=== PATIENT | female | born 1950 | race Caucasian/White ===

== ENCOUNTER → 2017-10-07 | Outpatient (CLI) | payer MEDICARE ==
--- NOTE | 2017-10-08 10:48 | MM ---
Reason for exam: screening (asymptomatic). Last mammogram was performed 17 years and 4 months ago. Physical Findings: A clinical breast exam by your physician is recommended on an annual basis and results should be correlated with mammographic findings. MG 3D Screening Mammo W/Cad Bilateral CC and MLO view(s) were taken. Prior study comparison: October 04, 2015, mammogram, performed at [facility]. July 25, 2015, mammogram, performed at [facility]. There are scattered fibroglandular densities. Finding: There are few typically benign round calcifications in both breasts. Asymmetric breast tissue in the left upper quadrant is stable. There is no discrete abnormality. ASSESSMENT: Benign, BI-RAD 2 RECOMMENDATION: Routine screening mammogram of both breasts in 1 year.
== END | disposition home or self-care (01) ==
LOC: RADMAMWWP 10:08
PROVIDERS: ATTEND Family Medicine
DX: Z12.31 Encounter for screening mammogram for malignant neoplasm of breast (principal)
CPT/HCPCS: 77063; 77067

== ENCOUNTER 2018-01-05 11:05 | Observation (INO) | payer MEDICARE ==
[2018-01-05] MEDS ORDERED: ASPIRIN 81 MG PO STA (11:31)
--- NOTE | 2018-01-05 11:43 | ED ---
Chest Pain HPI - General Chief Complaint: Chest Pain Stated Complaint: chest pain/tightness-left breast Time Seen by Provider: 01/05/18 11:29 Source: patient Mode of arrival: ambulatory Limitations: no limitations - History of Present Illness Initial Comments: Patient complains of chest pain. Pain is in the center and left of the chest, radiating towards the left side. Nothing makes it better or worse. She has been having chest pain off and on for several days. Her pain began to get worse over the last few hours. It is now not going away. She has taken no medication this. She was not doing anything when it began. She has no nausea or vomiting or diaphoresis. She has no shortness of breath, belly or back pain. She has no pain or swelling the legs. She has no focal weakness. She has no trouble swallowing. - Related Data Home Medications Medication Instructions Recorded Confirmed Omeprazole [PriLOSEC] 20 mg PO DAILY 02/28/14 01/05/18 Aspirin 325 mg PO ONCE PRN 01/05/18 01/05/18 Atorvastatin [Lipitor] 80 mg PO HS 01/05/18 01/05/18 Meclizine [Antivert] 25 mg PO DAILY 01/05/18 01/05/18 Multivitamins, Thera [Multivitamin 1 tab PO DAILY 01/05/18 01/05/18 (formulary)] Allergies Allergy/AdvReac Type Severity Reaction Status Date / Time Penicillins Allergy Rash/Hives Verified 01/05/18 11:42 Review of Systems ROS Statement: Those systems with pertinent positive or pertinent negative responses have been documented in the HPI. ROS Other: All systems not noted in ROS Statement are negative. EKG Findings - EKG Comments: EKG Findings:: Twelve-lead EKG shows ventricular rate 80 bpm, normal [place] interval and QRS complexes, no ST elevation or depression, interpreted by me as normal sinus rhythm. Past Medical History Past Medical History: Asthma, GERD/Reflux, Hyperlipidemia, Renal Disease History of Any Multi-Drug Resistant Organisms: None Reported Past Surgical History: Cholecystectomy, Hysterectomy Additional Past Surgical History / Comment(s): CERVICAL FUSION, COLONOSCOPY, BILAT CTR Past Anesthesia/Blood Transfusion Reactions: Motion Sickness Past Psychological History: No Psychological Hx Reported Smoking Status: Former smoker Past Alcohol Use History: None Reported Past Drug Use History: None Reported - Past Family History Father Family Medical History: Cancer General Exam Limitations: no limitations General appearance: alert, in no apparent distress Head exam: Present: atraumatic, normocephalic, normal inspection Eye exam: Present: normal appearance, PERRL, EOMI. Absent: scleral icterus, conjunctival injection, periorbital swelling ENT exam: Present: normal exam, mucous membranes moist Neck exam: Present: normal inspection. Absent: tenderness, meningismus, lymphadenopathy Respiratory exam: Present: normal lung sounds bilaterally. Absent: respiratory distress, wheezes, rales, rhonchi, stridor Cardiovascular Exam: Present: regular rate, normal rhythm, normal heart sounds. Absent: systolic murmur, diastolic murmur, rubs, gallop, clicks GI/Abdominal exam: Present: soft, normal bowel sounds. Absent: distended, tenderness, guarding, rebound, rigid Extremities exam: Present: normal inspection, full ROM, normal capillary refill. Absent: tenderness, pedal edema, joint swelling, calf tenderness Back exam: Present: normal inspection Neurological exam: Present: alert, oriented X3, CN II-XII intact Psychiatric exam: Present: normal affect, normal mood Skin exam: Present: warm, dry, intact, normal color. Absent: rash Course Vital Signs 01/05/18 01/05/18 11:14 12:44 Temperature 98.5 F Pulse Rate 86 83 Respiratory 20 16 Rate Blood Pressure 142/79 145/73 O2 Sat by Pulse 96 98 Oximetry Chest Pain MDM - Core Measures AMI Core Measures Followed: Yes - MDM Patient complains of chest pain. Her symptoms are typical for cardiac etiology. She will be admitted to the hospital. I will consult cardiology. Disposition Clinical Impression: Chest pain Disposition: ADMITTED IP TO THIS HOSP Condition: Fair Instructions: Chest Pain (ED) Is patient prescribed a controlled substance at d/c from ED?: No Referrals: Luke Tavarez DO [Primary Care Provider] - 1-2 days
[2018-01-05 11:54] LABS: Basophils % (A) 0 %; Eosinophils # (A) 0.2 k/uL (0-0.7); Eosinophils % (A) 3 %; HCT 45.1 % (34.0-46.0); HGB 15.4 gm/dL (11.4-16.0); Lymphocytes # (A) 1.7 k/uL (1.0-4.8); Lymphocytes % (A) 23 %; MCH 30.2 pg (25.0-35.0); MCHC 34.2 g/dL (31.0-37.0); MCV 88.3 fL (80.0-100.0); Monocytes # (A) 0.3 k/uL (0-1.0); Monocytes % (A) 5 %; Neutrophils % (A) 68 %; Platelet Count 309 k/uL (150-450); RBC 5.11 m/uL (3.80-5.40); RDW 13.1 % (11.5-15.5); WBC 7.4 k/uL (3.8-10.6)
[2018-01-05 12:01] LABS: Partial Thromboplastin Time 23.9 sec (22.0-30.0); Prothrombin Time 9.9 sec (9.0-12.0)
[2018-01-05 12:02] LABS: Albumin 4.1 g/dL (3.5-5.0); Magnesium 1.6 mg/dL (1.6-2.3); Potassium 4.4 mmol/L (3.5-5.1); Total Bilirubin 0.6 mg/dL (0.2-1.3); Total Protein 6.9 g/dL (6.3-8.2)
--- NOTE | 2018-01-05 12:04 | XR ---
EXAMINATION TYPE: XR chest 2V DATE OF EXAM: 01/05/2018 COMPARISON: Prior chest x-ray 11/26/1999 HISTORY: Chest pain TECHNIQUE: Frontal and lateral views of the chest are obtained. FINDINGS: There is no focal air space opacity, pleural effusion, or pneumothorax seen. The cardiac silhouette size is within normal limits. There are overlying cardiac leads. Patient is rotated. Posto p change noted to be some thoracic spine. The osseous structures are intact. IMPRESSION: No acute cardiopulmonary process.
[2018-01-05] MEDS ORDERED: TEMAZEPAM 15 MG CAP PO PRN (14:19)
[2018-01-05] MEDS ORDERED: MORPHINE SULFATE 4 MG/0.8 ML SYRINGE (INJ) IV PRN (14:19)
[2018-01-05] MEDS ORDERED: NALOXONE 0.4 MG/ML 1 ML VIAL IV PRN (14:19)
[2018-01-05] MEDS ORDERED: traMADol 50 MG TAB PO PRN (14:19)
[2018-01-05] MEDS ORDERED: ONDANSETRON 4 MG/2 ML VIAL IVP PRN (14:19)
[2018-01-05] MEDS ORDERED: ASPIRIN 325 MG TAB PO PRN (14:21)
[2018-01-05] MEDS: FAMOTIDINE 20 MG TAB PO SCH (20:43)
[2018-01-05] MEDS ORDERED: ATORVASTATIN 80 MG TAB PO SCH (21:00)
--- NOTE | 2018-01-06 06:34 | HP ---
HISTORY AND PHYSICAL DATE OF SERVICE: 01/05/2018 PRESENTING COMPLAINT: Chest pain. HISTORY OF PRESENTING COMPLAINT: This is a patient I saw last night on 01/05/2018. Chronic stable medical conditions include asthma, GERD, hyperlipidemia, chronic kidney disease follows with Dr. Andres. Wednesday evening, she felt she had pulled a muscle that is what it feels like in the anterior chest wall on the left side. She took some aspirin, went to sleep. The next night on Wednesday, had a similar episode in the evening and subsequently this morning until she presented she was having the symptoms the whole time. No short of breath. No dizziness. No lightheadedness. No perspiration. Did radiate to the armpit and some to the back, did not by activity. She decided to come in for a cardiac workup. REVIEW OF SYSTEMS: CONSTITUTIONAL: None. HEENT: None. RESPIRATORY: None. CARDIOVASCULAR: As above. GASTROINTESTINAL: Heartburn. GENITOURINARY: Urinary stress incontinence. DERMATOLOGICAL: None. HEMATOLOGICAL: None. LYMPHATIC: None. PSYCHIATRY: None. NEUROLOGICAL: None. PAST HISTORY: Past history of asthma, GERD, hyperlipidemia, urinary stress incontinence, chronic kidney disease. PAST SURGICAL HISTORY: Appendectomy, cholecystectomy, hysterectomy, cervical fusion, colonoscopy and polypectomy, bilateral cataract. SOCIAL HISTORY: Smoked less than a pack a day for 11 years, stopped in 1980. . FAMILY HISTORY: Family history of leukemia. HOME MEDICATIONS: 1. Prilosec 20 mg a day. 2. Multivitamin 1 tablet p.o. daily. 3. Antivert 25 mg p.o. daily. 4. Lipitor 80 mg at bedtime. 5. Aspirin 325 mg p.r.n. ALLERGIES: Allergies to PENICILLIN. PHYSICAL EXAMINATION: On examination, temperature 98.4 pulse 75, respiration 16, blood pressure 103/68, pulse ox 93% on room air. GENERAL APPEARANCE: Well built, BMI 33.6, sitting up, comfortable. EYES: Pupils equal. Conjunctivae normal. HENT: External appearance of nose and ear normal. Oral cavity normal. NECK: JVD not raised. Mass not palpable. RESPIRATORY: Effort . Lungs are clear. CARDIOVASCULAR: First and second sounds normal. No edema. ABDOMEN: Soft, nontender. Liver and spleen not palpable. LYMPHATIC: No lymph node palpable in the neck or axillae. PSYCHIATRY: Alert and oriented x3. Mood and affect normal. NEUROLOGICAL: Pupils equal. Cranial nerves grossly intact. Power and sensation grossly intact. INVESTIGATIONS: White count 7.4, hemoglobin 15.4. Potassium 4.4. BUN and creatinine is normal. Troponin x3 negative. EKG normal sinus rhythm. ASSESSMENT: 1. Left-sided chest wall pain, rather noncardiac features. The patient's risk factors including her age and ex-smoker. Rule out a cardiac cause. 2. Intermittent asthma. 3. Gastroesophageal reflux disease. 4. Hyperlipidemia. 5. Urinary stress incontinence. 6. Jorge Alberto 2 chronic kidney disease, being followed by Dr. Andres. 7. Obesity, body mass index 33.6. PLAN: Home medications are resumed. Patient is put on aspirin. Cardiology was consulted. The patient will need a stress test at some point. Questions were answered. MMCUONGL / MATHEWN: [id number] /
[2018-01-06] MEDS: FAMOTIDINE 20 MG TAB PO SCH (09:46)
[2018-01-06] MEDS ORDERED: MORPHINE ORAL SOLN 10 MG/5 ML CUP PO PRN (10:11)
--- NOTE | 2018-01-06 10:38 | ECHOF ---
Referral Reason:cp MEASUREMENTS -------- HEIGHT: 132.1 cm WEIGHT: 75.3 kg BP: RVIDd: 2.8 cm (< 3.3) IVSd: 1.0 cm (0.6 - 1.1) LVIDd: 3.7 cm (3.9 - 5.3) LVPWd: 0.9 cm (0.6 - 1.1) IVSs: 1.4 cm LVIDs: 2.7 cm LVPWs: 1.4 cm Ao Diam: 2.5 cm (2.0 - 3.7) AV Cusp: 1.7 cm (1.5 - 2.6) LA Diam: 4.1 cm (2.7 - 3.8) MV EXCURSION: 17.701 mm (> 18.000) MV EF SLOPE: 94 mm/s (70 - 150) EPSS: 0.2 cm MV E Bridger: 0.47 m/s MV DecT: 285 ms MV A Bridger: 0.52 m/s MV E/A Ratio: 0.90 RAP: 5.00 mmHg RVSP: 18.87 mmHg FINDINGS -------- Sinus rhythm. This was a technically good study. LV size, wall thickness and systolic function are normal, with an EF greater than 55%. The left ngozi tricular size is normal. The right ventricle is normal in size. The left atrial size is normal. The right atrial size is normal. The aortic valve is trileaflet, and appears structurally normal. No aortic stenosis or regurgitation. Mild mitral regurgitation is present. Mild tricuspid regurgitation present. There is no evidence of pulmonary hypertension. The right v entricular systolic pressure, as measured by Doppler, is 18.87mmHg. There is no pulmonic regurgitation present. The aortic root size is normal. Echo free space represents a pericardial fat pad. CONCLUSIONS -------- 1. LV size, wall thickness and systolic function are normal, with an EF greater than 55%. 2. The left ventricular size is normal. 3. The left atrial size is normal. 4. The aortic valve is trileaflet, and appears structurally normal. No aortic stenosis or regurgitati on. 5. Mild mitral regurgitation is present. 6. Mild tricuspid regurgitation present. 7. There is no evidence of pulmonary hypertension. 8. The right ventricular systolic pressure, as measured by Doppler, is 18.87mmHg. 9. There is no pulmonic regurgitation present. 10. The aortic root size is normal. 11. Echo free space represents a pericardial fat pad. [employer]ILD[employer]: Marlys Byrd RDCS
--- NOTE | 2018-01-06 11:01 | CONS ---
CONSULTATION CHIEF COMPLAINT: Chest pain. Lesli is a 67-year-old lady with history of dyslipidemia and dizziness, who presented to hospital complaining of chest discomfort. She complains it is a sharp precordial pain, sometimes on the right, sometimes on the left. Mild intensity unrelated to exertion episodes with diaphoresis. There is no clear-cut radiation to neck, arm or back. She has had it for 1-2 days before coming into hospital and then after coming to the ER, the pain had gradually resolved. Since being admitted to hospital, she had remained chest pain free. Three sets of cardiac enzymes are negative. EKG shows normal sinus rhythm, normal axis, normal intervals. She had an echocardiogram that showed normal LV function. Patient's chest discomfort is atypical. I am going to perform a stress test on her to rule out ischemic heart disease. If this is negative, she will be discharged home and will have outpatient followup. A chest x-ray on her was within normal limits. PAST MEDICAL HISTORY: Significant for dyslipidemia and GERD. MEDICATIONS: Include Antivert, Prilosec, Lipitor and aspirin. ALLERGIES: PENICILLIN. FAMILY HISTORY: Negative for premature coronary artery disease. SOCIAL HISTORY: Negative for smoking, EtOH abuse, or drug abuse. REVIEW OF SYSTEMS: HEENT is unremarkable. CARDIAC: As described above. RESPIRATORY: Negative. GI: Negative. GENITOURINARY: Negative. ALLERGY/IMMUNOLOGY: Negative. SKIN: Negative. MUSCULOSKELETAL: Significant for arthritis. PSYCHOSOCIAL: Negative. ENDOCRINE: Negative. DERM: Negative. CONSTITUTIONAL: Negative. ONCOLOGICAL: Negative. The rest of the system review is not relevant. PHYSICAL EXAM: Comfortable at rest. Vital signs are stable. There is no jugular venous distention. Carotid upstroke is normal. There is no bruit. Chest is clear to percussion. Heart exam reveals first and second heart sounds. No gallop. No murmur. No rub. Abdomen is soft, nontender. Exam of extremities did not reveal any edema. Peripheral pulses are felt. [employer]ER exam did not reveal focal neurological deficits. ASSESSMENT: 1. Precordial chest pain. 2. Dyslipidemia. PLAN: Patient's chest discomfort is atypical. Myocardial infarction is ruled out. EKG is normal. Cardiac enzymes have been negative. Echocardiogram shows normal wall motion and LV function. I am going to schedule her for a stress echo today. If this is negative, she will be discharged home and work on risk factor modification. If this is abnormal, I will consider invasive angiography. MMODL / IJN: [id number] /
[2018-01-06 11:56] VITALS: BP 126/77; PULSE 82; RESP 18; TEMP 98
--- NOTE | 2018-01-06 12:09 | ECHOS ---
STRESS ECHOCARDIOGRAM INDICATIONS: Chest pain. BASELINE HEART RATE: 78 BASELINE BLOOD PRESSURE: 134/54 MAXIMUM HEART RATE: 154 MAXIMUM BLOOD PRESSURE: 134/54 85% MPHR: 132 100% MPHR: 155 METS: 8.5 MAXIMUM STAGE REACHED: 3 TOTAL EXERCISE TIME: 7:00 CLINICAL INFORMATION: Baseline EKG shows sinus rhythm, normal axis, normal intervals. Patient exercised on Fly protocol for a total of 7 minutes achieving 8 METS, 98% of predicted maximal heart rate without chest pain or diagnostic ST-segment depression. Baseline echo shows normal left ventricular size, wall motion systolic function. Postexercise there is normal hyperdynamic response of all segments of myocardium noted. CONCLUSION: Negative stress test by EKG criteria. Negative stress echo. MMODL / IJN: [id number] /
--- NOTE | 2018-01-06 23:49 | DS ---
DISCHARGE SUMMARY DATE OF ADMISSION: 01/05/2018 DATE OF DISCHARGE: 01/06/2018 FINAL DIAGNOSES: 1. Left anterior chest wall pain; could be musculoskeletal. 2. Intermittent asthma. 3. Gastroesophageal reflux disease. 4. Hyperlipidemia. 5. Urinary stress incontinence. 6. Chronic kidney disease, stage II. 7. Obesity; body mass index of 33.6. HOSPITAL COURSE: This patient presented with chest pain. Stress echocardiogram was negative; could be musculoskeletal. CONSULTATION: Dr. Rohit See from Cardiology. DISCHARGE MEDICATIONS: 1. Prilosec 20 mg a day. 2. Lipitor 80 mg at bedtime. 3. Antivert 25 p.o. daily. 4. Multivitamin 1 tablet p.o. daily. 5. Aspirin 81 mg a day. Follow up with Dr. Tavarez in 3 days. Follow up with Dr. Rohit See on January 20, 2018. MMCUONGL / MATHEWN: [id number] /
== END 2018-01-06 15:35 | disposition home or self-care (01) ==
LOC: EC 11:05 → 3OBS 14:19
PROVIDERS: ADMIT Hospitalist; ATTEND Hospitalist
DX: R07.2 Precordial pain (principal); E78.5 Hyperlipidemia, unspecified; R42 Dizziness and giddiness; J45.20 Mild intermittent asthma, uncomplicated; K21.9 Gastro-esophageal reflux disease without esophagitis; N18.2 Chronic kidney disease, stage 2 (mild); N39.3 Stress incontinence (female) (male); E66.9 Obesity, unspecified; Z68.33 Body mass index [BMI] 33.0-33.9, adult; Z80.6 Family history of leukemia; Z79.899 Other long term (current) drug therapy; Z88.0 Allergy status to penicillin; Z90.710 Acquired absence of both cervix and uterus; Z98.1 Arthrodesis status; Z87.891 Personal history of nicotine dependence
CPT/HCPCS: 99285 ×2; 36415; 93005; 93306; 93351; 83880; 80053; 83690; 83735; 84484; 85025; 85610; 85730; 71046; G0378 ×2

== ENCOUNTER → 2018-02-02 | Outpatient (CLI) | payer MEDICARE ==
--- NOTE | 2018-02-02 13:13 | US ---
EXAMINATION TYPE: US kidneys/renal and bladder DATE OF EXAM: 02/02/2018 COMPARISON: US & CT CLINICAL HISTORY: N18.3 Chronic kidney stage 3. CKD, history of renal stones and left renal cyst EXAM MEASUREMENTS: Right Kidney: 9.5 x 3.9 x 4.1 cm Left Kidney: 9.7 x 4.2 x 4.3 cm Right Kidney: Cortical thinning, no evidence of hydro Left Kidney: Cortical thinning, no evidence of hydro, cyst lower pole= 1.9 x 1.5 x 1.8 cm, unchanged from previous study Bladder: wnl Bilateral Jets seen: Yes There is no evidence for hydronephrosis at this point in time. No nephrolithiasis is seen. No solid masses are identified. The urinary bladder is anechoic. Bilateral ureteral jets are seen. IMPRESSION: 1. Renal cortical thinning bilaterally. 2. Simple appearing cyst left kidney.
== END | disposition home or self-care (01) ==
LOC: RADUSWWP 10:49
PROVIDERS: ATTEND Internal Medicine Nephrology
DX: N28.89 Other specified disorders of kidney and ureter (principal); N18.3 Chronic kidney disease, stage 3 (moderate)
CPT/HCPCS: 76770

== ENCOUNTER → 2018-10-17 | Outpatient (CLI) | payer MEDICARE ==
--- NOTE | 2018-10-18 09:48 | MM ---
Reason for exam: screening (asymptomatic). Last mammogram was performed 1 year ago. Physical Findings: A clinical breast exam by your physician is recommended on an annual basis and results should be correlated with mammographic findings. MG 3D Screening Mammo W/Cad Bilateral CC and MLO view(s) were taken. Prior study comparison: October 07, 2017, bilateral MG 3d screening mammo w/cad. October 04, 2015, mammogram, performed at [facility]. The breast tissue is heterogeneously dense. This may lower the sensitivity of mammography. There is no discrete abnormality. No significant changes when compared with prior studies. ASSESSMENT: Negative, BI-RAD 1 RECOMMENDATION: Routine screening mammogram of both breasts in 1 year.
== END | disposition home or self-care (01) ==
LOC: RADMAMWWP 08:11
PROVIDERS: ATTEND Family Medicine
DX: Z12.31 Encounter for screening mammogram for malignant neoplasm of breast (principal)
CPT/HCPCS: 77063; 77067

== ENCOUNTER → 2018-10-25 | Outpatient (CLI) | payer MEDICARE ==
--- NOTE | 2018-10-25 16:51 | BD ---
EXAMINATION TYPE: Axial Bone Density DATE OF EXAM: 10/25/2018 COMPARISON: NONE CLINICAL HISTORY: 68-year-old female screening for osteoporosis Height: 4 FT 11 1/2 IN Weight: 161 FRAX RISK QUESTIONS: RISK FACTORS HISTORY OF: Surgery to Spine/Hip(right/left)/Wrist (right/left): C-SPINE SURGE When: APPROX. 8 YEARS AGO Active: YES Postmenopausal woman: PART HYST AGE 40 MEDICATIONS: How Long: Additional Medications: ATORVASTATIN, VIT D , MULTI, OMEPRAZOLE Additional History: EXAM MEASUREMENTS: Bone mineral densitometry was performed using the [employer]. Bone mineral density as measured about the Lumbar spine is: ----- L1-L4(G/cm2): 1.225 T Score Values are as follows: ----- L2: 0.8 ----- L3: 0.2 ----- L4: 0.3 ----- L1-L4: 0.4 BASELINE Bone mineral density about the R hip (g/cm2): 0.935 Bone mineral density about the L hip (g/cm2): 0.912 T Score values are as follows: -----R Neck: -0.7 -----L Neck: -0.9 -----R Total: 0.3 -----L Total: 0.4 BASELINE IMPRESSION: Normal (Values between +1 and -1 indicate normal bone mass). Consider repeating this study in 5 year s or sooner if there is some new clinical indication. NOTE: T-SCORE=SD OF THE YOUNG ADULT MEAN.
== END | disposition home or self-care (01) ==
LOC: RADBDWWP 10:50
PROVIDERS: ATTEND Family Medicine
DX: Z13.820 Encounter for screening for osteoporosis (principal); Z00.00 Encounter for general adult medical examination without abnormal findings
CPT/HCPCS: 77080

== ENCOUNTER → 2019-10-25 | Outpatient (CLI) | payer MEDICARE ==
--- NOTE | 2019-10-26 11:10 | MM ---
Reason for exam: screening (asymptomatic). Last mammogram was performed 1 year ago. Physical Findings: A clinical breast exam by your physician is recommended on an annual basis and results should be correlated with mammographic findings. MG 3D Screening Mammo W/Cad Bilateral CC and MLO view(s) were taken. Prior study comparison: October 17, 2018, bilateral MG 3d screening mammo w/cad. October 07, 2017, bilateral MG 3d screening mammo w/cad. The breast tissue is heterogeneously dense. This may lower the sensitivity of mammography. No suspicious abnormality. No significant changes when compared with prior studies. ASSESSMENT: Negative, BI-RAD 1 RECOMMENDATION: Routine screening mammogram of both breasts in 1 year.
== END | disposition home or self-care (01) ==
LOC: RADMAMWWP 07:25
PROVIDERS: ATTEND Family Medicine
DX: Z12.31 Encounter for screening mammogram for malignant neoplasm of breast (principal)
CPT/HCPCS: 77063; 77067

== ENCOUNTER → 2021-01-17 | Outpatient (CLI) | payer MEDICARE ==
--- NOTE | 2021-01-20 11:10 | MM ---
Reason for exam: screening (asymptomatic). Last mammogram was performed 1 year and 3 months ago. History: Family history of breast cancer in aunt. Physical Findings: A clinical breast exam by your physician is recommended on an annual basis and results should be correlated with mammographic findings. MG 3D Screening Mammo W/Cad Bilateral CC and MLO view(s) were taken. Prior study comparison: October 25, 2019, bilateral MG 3d screening mammo w/cad. October 17, 2018, bilateral MG 3d screening mammo w/cad. There are scattered fibroglandular densities. There is no discrete abnormality. No significant changes when compared with prior studies. ASSESSMENT: Negative, BI-RAD 1 RECOMMENDATION: Routine screening mammogram of both breasts in 1 year.
== END | disposition home or self-care (01) ==
LOC: RADMAMWWP 08:03
PROVIDERS: ATTEND Family Medicine
DX: Z12.31 Encounter for screening mammogram for malignant neoplasm of breast (principal); Z80.3 Family history of malignant neoplasm of breast
CPT/HCPCS: 77063; 77067

== ENCOUNTER → 2023-01-21 | Outpatient (CLI) | payer MEDICARE ==
--- NOTE | 2023-01-22 08:42 | MM ---
Reason for Exam: Screening (asymptomatic). Last screening mammogram was performed 12 month(s) ago. Patient History: Menarche at age 15. First Full-Term at age 21. Hysterectomy at age 37. Other cancer. Maternal aunt had breast cancer. Risk Values: Talia 5 year model risk: 1.2%. NCI Lifetime model risk: 3.7%. Prior Study Comparison: 10/25/2019 Bilateral Screening Mammogram, [facility]. 01/17/2021 Bilateral Screening Mammogram, [facility]. 01/19/2022 Bilateral Screening Mammogram, [facility]. Tissue Density: There are scattered fibroglandular densities. Findings: Analyzed By CAD. There is no suspicious group of microcalcifications or new suspicious mass in either breast. Benign-appearing round calcifications within both breasts. Asymmetries are unchanged bilaterally. Overall Assessment: Benign, BI-RAD 2 Management: Screening Mammogram of both breasts in 1 year. A clinical breast exam by your physician is recommended on an annual basis and results should be correlated with mammographic findings. Electronically signed and approved by: El Sorenson D.O.
== END | disposition home or self-care (01) ==
LOC: RADMAMWWP 08:02
PROVIDERS: ATTEND Family Medicine
DX: Z12.31 Encounter for screening mammogram for malignant neoplasm of breast (principal); Z80.3 Family history of malignant neoplasm of breast
CPT/HCPCS: 77063; 77067

== ENCOUNTER → 2024-03-07 | Outpatient (CLI) | payer MEDICARE ==
--- NOTE | 2024-03-08 08:32 | MM ---
Reason for Exam: Screening (asymptomatic). Last mammogram was performed 1 year(s) and 1 month(s) ago. Patient History: Menarche at age 15. First Full-Term at age 21. Hysterectomy at age 37. Other cancer. Maternal aunt had breast cancer. Risk Values: Talia 5 year model risk: 1.3%. NCI Lifetime model risk: 3.5%. Prior Study Comparison: 01/17/2021 Bilateral Screening Mammogram, [facility]. 01/19/2022 Bilateral Screening Mammogram, [facility]. 01/21/2023 Bilateral MG 3D screening mammo w/cad, [facility]. Tissue Density: The breasts are heterogeneously dense, which may obscure small masses. Findings: Analyzed By CAD. There is no suspicious group of microcalcifications or new suspicious mass in either breast. Overall Assessment: Benign, BI-RAD 2 Management: Screening Mammogram of both breasts in 1 year. . Patient should continue monthly self-breast exams. A clinical breast exam by your physician is recommended on an annual basis. This exam should not preclude additional follow-up of suspicious palpable abnormalities. Note on Talia scores and lifetime risk: 1. A Talia score greater than 3% is considered moderate risk. If this is the case, consider specialist referral to assess eligibility for a risk reducing agent. 2. If overall lifetime risk for the development of breast cancer is 20% or higher, the patient may qualify for future screening with alternating mammogram and breast MRI. Electronically signed and approved by: Gage Rivera M.D. Radiologis
== END | disposition home or self-care (01) ==
LOC: RADMAMWWP 08:22
PROVIDERS: ATTEND Family Medicine
DX: Z12.31 Encounter for screening mammogram for malignant neoplasm of breast (principal); Z80.3 Family history of malignant neoplasm of breast
CPT/HCPCS: 77063; 77067

== ENCOUNTER → 2024-08-18 | Outpatient (CLI) | payer MEDICARE ==
--- NOTE | 2024-08-18 15:57 | BD ---
EXAMINATION TYPE: Axial Bone Density DATE OF EXAM: 08/18/2024 CLINICAL HISTORY: 74 years old Female. ICD-10 CODE: Z13.820 ENCOUNTER FOR SCREENING FOR OSTEOPOROSIS , Additional History: Height: 59 Weight: 136.4 FRAX RISK QUESTIONS: Alcohol (3 or more units per day): no Family History (Parent hip fracture): NO Glucocorticoids (More than 3mos): no (Ex: prednisone, prednisolone, methylprednisolone, dexamethasone, and hydrocortisone). History of Fracture in Adulthood: no Secondary Osteoporosis: 1. Type 1 Diabetes: no 2. Hyperthyroidism: no 3. Menopause before 45: no 4. Malnutrition: no 5. Chronic liver disease: no Rheumatoid Arthritis: no Current Tobacco Use: no RISK FACTORS HISTORY OF: Hip Fracture (Right/Left): no Spine Fracture: no History of Wrist Fracture: no Surgery to Spine/Hip(right/left)/Wrist (right/left): no MEDICATIONS: Thyroid Medications: no Osteoporosis Medications: no EXAM MEASUREMENTS: Bone mineral densitometry was performed using the [employer] System. Bone mineral density as measured about the Lumbar spine is: ----- L1-L4(G/cm2): 1.152 T Score Values are as follows: ----- L1: -1.4 ----- L2: -1.0 ----- L3: 0.5 ----- L4: 0.5 ----- L1-L4: -0.2 Z Score Values are as follows: ----- L1: 0.4 ----- L2: 0.8 ----- L3: 2.4 ----- L4: 2.3 ----- L1-L4: 1.6 Baseline Study Bone mineral density about the R hip (g/cm2): 1.043 Bone mineral density about the L hip (g/cm2): 1.006 T Score values are as follows: -----R Neck: -0.9 -----L Neck: -0.9 -----R Total: 0.3 -----L Total: 0.0 Z Score values are as follows: -----R Neck: 1.0 -----L Neck: 1.0 -----R Total: 1.9 -----L Total: 1.06 Baseline Study FRAX%s: The graph provided illustrates a 8.9*% chance for a major osteoporotic fx and a 1.0% chance f or the hips probability for fx in 10 years time. IMPRESSION: Normal (Values between +1 and -1 indicate normal bone mass). Consider repeating this study in 5 year s or sooner if there is some new clinical indication. NOTE: T-SCORE=SD OF THE YOUNG ADULT MEAN. [facility], , 08/18/2024 3:55 PM
== END | disposition home or self-care (01) ==
LOC: RADBDWWP 13:04
PROVIDERS: ATTEND Family Medicine
DX: Z13.820 Encounter for screening for osteoporosis (principal)
CPT/HCPCS: 77080

== ENCOUNTER → 2024-08-18 | Outpatient (CLI) | payer MEDICARE ==
--- NOTE | 2024-08-18 13:54 | US ---
EXAMINATION TYPE: US kidneys/renal and bladder DATE OF EXAM: 08/18/2024 COMPARISON: NONE CLINICAL INDICATION: Female, 74 years old with history of N18.31 CHRONIC KIDNEY DISEASE, STAGE 3A; CK D TECHNIQUE: Grayscale imaging of the bilateral kidneys and urinary bladder: FINDINGS: EXAM MEASUREMENTS: Right Kidney: 8.8 x 3.8x 4.6 cm Left Kidney: 8.6 x 4.3 x 4.6 cm Right Kidney: wnl, no evidence for hydronephrosis, mass or renal calculus. Left Kidney: wnl, no evidence for hydronephrosis, mass or renal calculus. Bladder: wnl Bilateral Jets seen: Yes There is no evidence for hydronephrosis at this point in time. No nephrolithiasis is seen. No tim s are identified. The urinary bladder is anechoic. exam limited by habitus and bowel IMPRESSION: No evidence for acute process. No obstructive uropathy or calculus. [facility], , 08/18/2024 1:52 PM
== END | disposition home or self-care (01) ==
LOC: RADUSWWP 13:03
PROVIDERS: ATTEND Internal Medicine Nephrology
DX: N18.31 Chronic kidney disease, stage 3a (principal)
CPT/HCPCS: 76770

== ENCOUNTER 2024-08-31 12:34 | Emergency (ER) | payer MEDICARE ==
[2024-08-31 12:54] VITALS: RESP 16
--- NOTE | 2024-08-31 13:41 | ED ---
General Adult HPI - General Chief complaint: Dizziness Stated complaint: Dizziness Time Seen by Provider: 08/31/24 13:01 Source: patient, family, RN notes reviewed, old records reviewed Mode of arrival: ambulatory Limitations: no limitations - History of Present Illness Initial comments: 74-year-old female presenting with dizziness, cough cold symptoms and frontal headache. Symptoms have been present for the past 48 hours. She denies sudden onset to her headache. She states it feels like the room is spinning. She denies focal numbness or weakness. No chest or abdominal pain. No vomiting. Normal appetite. No vision changes. - Related Data Home Medications Medication Instructions Recorded Confirmed Omeprazole [PriLOSEC] 20 mg PO DAILY 02/28/14 09/28/18 Atorvastatin [Lipitor] 80 mg PO HS 01/05/18 09/28/18 Meclizine [Antivert] 25 mg PO DAILY 01/05/18 09/28/18 Multivitamins, Thera [Multivitamin 1 tab PO DAILY 01/05/18 09/28/18 (formulary)] Previous Rx's Medication Instructions Recorded Aspirin 81 mg PO DAILY #1 chewable 01/06/18 Cephalexin [Keflex] 500 mg PO Q12HR 10 Days #20 cap 08/31/24 Loratadine [Claritin] 10 mg PO DAILY #7 tab 08/31/24 Allergies Allergy/AdvReac Type Severity Reaction Status Date / Time Penicillins Allergy Rash/Hives Verified 09/28/18 14:15 Review of Systems ROS Statement: Those systems with pertinent positive or pertinent negative responses have been documented in the HPI. ROS Other: All systems not noted in ROS Statement are negative. Past Medical History Past Medical History: Asthma, Diabetes Mellitus, GERD/Reflux, Hyperlipidemia, Renal Disease Additional Past Medical History / Comment(s): VERY SENSATIVE TO SMELLS SUCH PERFUME.COLOGNE, LAUNDRY DETERGENT-EYES WATER,RUNNY NOSE. DIVERTICULOSIS,POLYPS- BENIGN, MURMUR, PAST UTI'S History of Any Multi-Drug Resistant Organisms: None Reported Past Surgical History: Appendectomy, Cholecystectomy, Hysterectomy Additional Past Surgical History / Comment(s): CERVICAL FUSION, COLONOSCOPY/POLYPECTOMY, BILAT CTR Past Anesthesia/Blood Transfusion Reactions: Motion Sickness Past Psychological History: No Psychological Hx Reported Past Alcohol Use History: None Reported Past Drug Use History: None Reported - Past Family History Daughter(s) Family Medical History: Cancer Additional Family Medical History / Comment(s): LEUKEMIA Mother Family Medical History: Asthma Additional Family Medical History / Comment(s): -LUNG DISEASE WAS ON O2 Father Family Medical History: Cancer General Exam Limitations: no limitations General appearance: alert, in no apparent distress Head exam: Present: atraumatic, normocephalic Eye exam: Present: normal appearance, PERRL, nystagmus ENT exam: Present: normal exam, mucous membranes moist Neck exam: Present: normal inspection. Absent: tenderness, meningismus Respiratory exam: Present: normal lung sounds bilaterally. Absent: respiratory distress, wheezes Cardiovascular Exam: Present: regular rate, normal rhythm GI/Abdominal exam: Present: soft. Absent: distended, tenderness, guarding Extremities exam: Present: normal inspection, normal capillary refill Neurological exam: Present: alert, oriented X3, CN II-XII intact. Absent: motor sensory deficit Psychiatric exam: Present: normal affect, normal mood Skin exam: Present: warm, dry, intact. Absent: cyanosis, diaphoretic Course Vital Signs 08/31/24 12:51 Temperature 97.5 F L Pulse Rate 71 Respiratory 16 Rate Blood Pressure 144/80 O2 Sat by Pulse 97 Oximetry Medical Decision Making - Medical Decision Making Was pt. sent in by a medical professional or institution (FERNANDO Joaquin, LICENSED PHARMACIST, urgent care, hospital, or intermediate...) When possible be specific @ -No Did you speak to anyone other than the patient for history (EMS, parent, family, police, friend...)? What history was obtained from this source @ -No Did you review nursing and triage notes (agree or disagree)? Why? @ -I reviewed and agree with nursing and triage notes Were old charts reviewed (outside hosp., previous admission, EMS record, old EKG, old radiological studies, urgent care reports/EKG's, intermediate records)? Report findings @ -No old charts were reviewed Differential Dizziness: Benign paroxysmal positional Vertigo, Meniere's disease, otitis media, acoustic neuroma, vertebrobasilar insufficiency, cerebellar stroke, encephalitis, hypovolemic, arrhythmia, coronary artery syndrome, anemia, this is not meant to be an all-inclusive list EKG interpreted by me (3pts min.). @Sinus rhythm rate of 69, DE interval 166, QRS duration 81, QTc 409 X-rays interpreted by me (1pt min.). @ -None done CT interpreted by me (1pt min.). @CT brain is negative for intracranial hemorrhage but does show signs consistent with sinusitis. U/S interpreted by me (1pt. min.). @ -None done What testing was considered but not performed or refused? (CT, X-rays, U/S, labs)? Why? @ -None What meds were considered but not given or refused? Why? @ -None Did you discuss the management of the patient with other professionals (nelida conte i.e. , PA, LICENSED PHARMACIST, lab, RT, psych nurse, high school social studies teacher, equity holder, teacher, highway patrol officer, medical case manager)? Give summary @ -No Was smoking cessation discussed for >3mins.? @ -No Was critical care preformed (if so, how long)? @ -No Were there social determinants of health that impacted care today? How? (Homelessness, low income, unemployed, alcoholism, drug addiction, transportation, low edu. Level, literacy, decrease access to med. care, intermediate, rehab)? @ -No Was there de-escalation of care discussed even if they declined (Discuss DNR or withdrawal of care, Hospice)? DNR status @ -No What co-morbidities impacted this encounter? (DM, HTN, Smoking, COPD, CAD, Cancer, CVA, ARF, Chemo, Hep., AIDS, mental health diagnosis, sleep apnea, morbid obesity)? @ -None Was patient admitted / discharged? Hospital course, mention meds given and route, prescriptions, significant lab abnormalities, going to OR and other pertinent info. @ -[74-year-old female with cough cold symptoms, dizziness, patient well- appearing with stable vitals. No nystagmus, no ataxia, normal neurologic exam. Patient had complained of headache and therefore CT was ordered which does show sinusitis. Her symptoms have been present for the past 2 days. She does not require antibiotics at this time for sinusitis but does have a current urinary tract infection. Patient instructed on oral hydration, will take Claritin for sinus congestion and antibiotics for UTI. Undiagnosed new problem with uncertain prognosis? @ -No Drug Therapy requiring intensive monitoring for toxicity (Heparin, Nitro, Insulin, Cardizem)? @ -No Were any procedures done? @ -No Diagnosis/symptom? @ -Sinusitis, dizziness, UTI Acute, or Chronic, or Acute on Chronic? @ -[Acute Uncomplicated (without systemic symptoms) or Complicated (systemic symptoms)? @ -Default Side effects of treatment? @ -No Exacerbation, Progression, or Severe Exacerbation? @ -No Poses a threat to life or bodily function? How? (Chest pain, [place], [place], pneumonia, PE, COPD, DKA, ARF, appy, cholecystitis, CVA, Diverticulitis, Homicidal, Suicidal, threat to staff... and all critical care pts) @ -No - Lab Data Result diagrams: 08/31/24 13:44 08/31/24 13:44 Lab Results 08/31/24 08/31/24 08/31/24 Range/Units 13:44 13:44 13:44 WBC 7.4 (3.8-10.6) k/uL RBC 4.91 (3.80-5.40) m/uL Hgb 15.1 (11.4-16.0) gm/dL Hct 45.6 (34.0-46.0) % MCV 93.0 (80.0-100.0) fL MCH 30.7 (25.0-35.0) pg MCHC 33.1 (31.0-37.0) g/dL RDW 12.2 (11.5-15.5) % Plt Count 314 (150-450) k/uL MPV 6.7 Neutrophils % 66 % Lymphocytes % 23 % Monocytes % 5 % Eosinophils % 4 % Basophils % 0 % Neutrophils # 4.9 (1.3-7.7) k/uL Lymphocytes # 1.7 (1.0-4.8) k/uL Monocytes # 0.4 (0-1.0) k/uL Eosinophils # 0.3 (0-0.7) k/uL Basophils # 0.0 (0-0.2) k/uL PT 10.6 (10.0-12.5) sec INR 0.9 (<1.2) Sodium (137-145) mmol/L Potassium (3.5-5.1) mmol/L Chloride (98-107) mmol/L Carbon Dioxide (22-30) mmol/L Anion Gap mmol/L BUN (7-17) mg/dL Creatinine (0.52-1.04) mg/dL Est GFR (CKD-EPI)AfAm (>60 ml/min/1.73 sqM) Est GFR (CKD-EPI)NonAf (>60 ml/min/1.73 sqM) Glucose (74-99) mg/dL Calcium (8.4-10.2) mg/dL Total Bilirubin (0.2-1.3) mg/dL AST (14-36) U/L ALT (4-34) U/L Alkaline Phosphatase (38-126) U/L Troponin I (0.000-0.034) ng/mL Total Protein (6.3-8.2) g/dL Albumin (3.5-5.0) g/dL Urine Color Yellow Urine Appearance Cloudy H (Clear) Urine pH 5.5 (5.0-8.0) Ur Specific [place] 1.023 (1.001-1.035) Urine Protein Negative (Negative) Urine Glucose (UA) Negative (Negative) Urine Ketones Trace H (Negative) Urine Blood Negative (Negative) Urine Nitrite Positive H (Negative) Urine Bilirubin Negative (Negative) Urine Urobilinogen <2.0 (<2.0) mg/dL Ur Leukocyte Esterase Trace H (Negative) Urine RBC 1 (0-5) /hpf Urine WBC 2 (0-5) /hpf Ur Squamous Epith Cells 3 (0-4) /hpf Calcium Oxalate Crystal Moderate H (None) /hpf Urine Bacteria Occasional H (None) /hpf Urine Mucus Moderate H (None) /hpf 08/31/24 08/31/24 Range/Units 13:44 13:44 WBC (3.8-10.6) k/uL RBC (3.80-5.40) m/uL Hgb (11.4-16.0) gm/dL Hct (34.0-46.0) % MCV (80.0-100.0) fL MCH (25.0-35.0) pg MCHC (31.0-37.0) g/dL RDW (11.5-15.5) % Plt Count (150-450) k/uL MPV Neutrophils % % Lymphocytes % % Monocytes % % Eosinophils % % Basophils % % Neutrophils # (1.3-7.7) k/uL Lymphocytes # (1.0-4.8) k/uL Monocytes # (0-1.0) k/uL Eosinophils # (0-0.7) k/uL Basophils # (0-0.2) k/uL PT (10.0-12.5) sec INR (<1.2) Sodium 138 (137-145) mmol/L Potassium 4.3 (3.5-5.1) mmol/L Chloride 103 (98-107) mmol/L Carbon Dioxide 26 (22-30) mmol/L Anion Gap 9 mmol/L BUN 17 (7-17) mg/dL Creatinine 0.96 (0.52-1.04) mg/dL Est GFR (CKD-EPI)AfAm 68 (>60 ml/min/1.73 sqM) Est GFR (CKD-EPI)NonAf 59 (>60 ml/min/1.73 sqM) Glucose 114 H (74-99) mg/dL Calcium 10.1 (8.4-10.2) mg/dL Total Bilirubin 0.7 (0.2-1.3) mg/dL AST 29 (14-36) U/L ALT 25 (4-34) U/L Alkaline Phosphatase 86 (38-126) U/L Troponin I <0.012 (0.000-0.034) ng/mL Total Protein 7.3 (6.3-8.2) g/dL Albumin 4.5 (3.5-5.0) g/dL Urine Color Urine Appearance (Clear) Urine pH (5.0-8.0) Ur Specific [place] (1.001-1.035) Urine Protein (Negative) Urine Glucose (UA) (Negative) Urine Ketones (Negative) Urine Blood (Negative) Urine Nitrite (Negative) Urine Bilirubin (Negative) Urine Urobilinogen (<2.0) mg/dL Ur Leukocyte Esterase (Negative) Urine RBC (0-5) /hpf Urine WBC (0-5) /hpf Ur Squamous Epith Cells (0-4) /hpf Calcium Oxalate Crystal (None) /hpf Urine Bacteria (None) /hpf Urine Mucus (None) /hpf Disposition Clinical Impression: Sinusitis, UTI (urinary tract infection), Dizziness Disposition: HOME SELF-CARE Condition: Fair Instructions (If sedation given, give patient instructions): Dizziness (ED), Sinusitis (ED), Urinary Tract Infection in Women (ED) Prescriptions: Loratadine [Claritin] 10 mg PO DAILY #7 tab Cephalexin [Keflex] 500 mg PO Q12HR 10 Days #20 cap Is patient prescribed a controlled substance at d/c from ED?: No Referrals: Heidi Marley III, MD [Primary Care Provider] - 1-2 days Time of Disposition: 14:44
[2024-08-31] MEDS: SODIUM CHLORIDE 0.9% 1,000 ML IV STA (13:47)
[2024-08-31] MEDS: MECLIZINE 12.5 MG TAB PO STA (13:47)
[2024-08-31 14:00] LABS: Basophils % (A) 0 %; Eosinophils # (A) 0.3 k/uL (0-0.7); Eosinophils % (A) 4 %; HCT 45.6 % (34.0-46.0); HGB 15.1 gm/dL (11.4-16.0); Lymphocytes # (A) 1.7 k/uL (1.0-4.8); Lymphocytes % (A) 23 %; MCH 30.7 pg (25.0-35.0); MCHC 33.1 g/dL (31.0-37.0); Mean Platelet Volume 6.7; Monocytes # (A) 0.4 k/uL (0-1.0); Monocytes % (A) 5 %; Neutrophils # (A) 4.9 k/uL (1.3-7.7); Neutrophils % (A) 66 %; Platelet Count 314 k/uL (150-450); RBC 4.91 m/uL (3.80-5.40); RDW 12.2 % (11.5-15.5); WBC 7.4 k/uL (3.8-10.6)
[2024-08-31 14:15] LABS: INR 0.9 (<1.2); Prothrombin Time 10.6 sec (10.0-12.5)
[2024-08-31 14:16] LABS: ALT 25 U/L (4-34); AST 29 U/L (14-36); African American GFR (CKD) 68 (>60 ml/min/1.73 sqM); Albumin 4.5 g/dL (3.5-5.0); Alkaline Phosphatase 86 U/L (38-126); Anion Gap 9 mmol/L; Blood Urea Nitrogen 17 mg/dL (7-17); Calcium 10.1 mg/dL (8.4-10.2); Carbon Dioxide 26 mmol/L (22-30); Chloride 103 mmol/L (98-107); Glucose 114 mg/dL (74-99); Non-African American GFR(CKD) 59 (>60 ml/min/1.73 sqM); Potassium 4.3 mmol/L (3.5-5.1); Sodium 138 mmol/L (137-145); Total Bilirubin 0.7 mg/dL (0.2-1.3); Total Protein 7.3 g/dL (6.3-8.2)
--- NOTE | 2024-08-31 14:16 | CT ---
EXAMINATION TYPE: CT brain wo con CT DLP: 1065.4 mGycm, Automated exposure control for dose reduction was used. DATE OF EXAM: 08/31/2024 2:10 PM COMPARISON: CT brain 12/08/2011 CLINICAL INDICATION:Female, 74 years old with history of Dizzy/ADAN, ADAN, dizziness TECHNIQUE: Brain: Multiple axial CT images of the brain were obtained without IV contrast. . Coronal and sagitta l reformats reviewed. FINDINGS: Brain: Extra-axial spaces: No abnormal extra-axial fluid collections. Falx lipoma identified. Ventricular system: Within normal limits Cerebral parenchyma: No acute intraparenchymal hemorrhage or mass effect. The prabhakar-white junction is well differentiated. Scattered hypoattenuating areas are seen within the periventricular white matte r. Cerebellum: Unremarkable. Mass effect: No evidence of midline shift. Intracranial vasculature: unremarkable Soft tissues: Normal. Calvarium/osseous structures: No depressed skull fracture. Paranasal sinuses and mastoid air cells: The mastoid air cells are clear. Right external auditory can al cerumen. Mild mucosal thickening of the right sphenoid sinus. Moderate mucosal thickening of the r ight ethmoid sinus and mild mucosal thickening in the left ethmoid sinus. Mild mucosal thickening of the right frontal sinus with minimal mucosal thickening of the left frontal sinus. Mild mucosal thick ening of the right maxillary sinus. The left maxillary sinus is clear. Visualized orbits: Orbital contents are intact. IMPRESSION: 1. No acute intracranial process. 2. Nonspecific white matter changes, likely secondary to chronic small vessel ischemic disease. 3. Paranasal sinus disease. [facility], , 08/31/2024 2:14 PM
[2024-08-31 14:25] LABS: Appearance,Urine Cloudy (Clear); Bacteria,Urine Occasional /hpf; Bilirubin,Urine Negative (Negative); Blood,Urine Negative (Negative); Calcium Oxalate Crystals,Urine Moderate /hpf; Color,Urine Yellow; Glucose,Urine (UA) Negative (Negative); Ketones,Urine Trace (Negative); Leukocyte Esterase,Urine Trace (Negative); Mucus,Urine Moderate /hpf; Nitrite,Urine Positive (Negative); PH, Urine 5.5 (5.0-8.0); Protein,Urine Negative (Negative); RBC,Urine 1 /hpf (0-5); Specific Gravity,Urine 1.023 (1.001-1.035); Squamous Epithelial Cell,Urine 3 /hpf (0-4); Urobilinogen,Urine <2.0 mg/dL (<2.0); WBC,Urine 2 /hpf (0-5)
[2024-08-31] MEDS: LORATADINE 10 MG TAB PO STA (14:47)
[2024-08-31 15:08] VITALS: BP 138/81; PULSE 68; TEMP 97.9
== END 2024-08-31 15:09 | disposition home or self-care (01) ==
LOC: EC 12:34
DX: J32.9 Chronic sinusitis, unspecified (principal); N39.0 Urinary tract infection, site not specified; R42 Dizziness and giddiness; Z88.0 Allergy status to penicillin; Z11.52 Encounter for screening for COVID-19
CPT/HCPCS: 36415; 70450; 80053; 81001; 84484; 85025; 85610; 87636; 93005; 96360; 99284

== ENCOUNTER → 2025-02-01 | Outpatient (CLI) | payer MEDICARE ==
--- NOTE | 2025-02-01 21:00 | MR ---
INDICATION: Patient age:Female; 74 years old; Reason for study: DIZZINESS; PHH. COMPARISON: CT brain 08/31/2024, 12/08/2011. TECHNIQUE: Multi planar, multi sequence imaging was performed through the brain. The patient was then given 6 cc of Gadobutrol intravenously and multi planar, T1 fat-saturation images were obtained. FINDINGS: The prabhakar-white junctions, ventricular system, basal cisterns appear unremarkable. Age-appropriate mil d cerebral volume loss. Diffusion-weighted imaging shows no evidence of restricted diffusion to sugge st acute/subacute infarct. Intracranial arterial flow voids are maintained. Incidental T1 hyperintens e falx lipoma. The remaining midline structures show no abnormality. Patchy areas of high T2/FLAIR si gnal intensity are seen within the periventricular and subcortical white matter. The susceptibility w eighted images do not reveal any evidence for micro-hemorrhage. After administration of gadolinium, n o abnormal enhancement is seen. The bone marrow signal is within normal limits. The globes unremarkable. Moderate mucosal thickening of the frontal, ethmoid, and right maxillary sinuses. Mild mucosal thickening of the right sphenoid sinus. IMPRESSION: 1. No evidence of intracranial mass, acute/subacute infarct, or abnormal enhancement. 2. Nonspecific mild white matter changes, likely related to small vessel ischemic disease versus othe r etiologies such as chronic migraines. 3. Paranasal sinus disease. [facility], , 02/01/2025 8:58 PM
== END | disposition home or self-care (01) ==
LOC: RADMRIMAIN 20:10
PROVIDERS: ATTEND Family Medicine
DX: R90.82 White matter disease, unspecified (principal); R42 Dizziness and giddiness
CPT/HCPCS: 70553; A9585